=== PATIENT | male | born 1995 | race Caucasian/White ===

== ENCOUNTER 2022-06-28 18:09 | Emergency (ER) | payer SELFPAY ==
[2022-06-28 18:10] VITALS: BP 135/81; PULSE 95; RESP 15; TEMP 36.4; O2SAT 100
--- NOTE | 2022-06-28 18:20 | PC.NURSE ---
EDP at bedside to assess pt.
--- NOTE | 2022-06-28 18:29 | ED.WOUNDLAC ---
HPI - Wound/Laceration General Chief Complaint: Wound/Laceration Stated Complaint: ?spider bite right thigh Time Seen by Provider: 06/28/22 18:19 History of Present Illness HPI narrative: Patient is a 26-year-old male here for evaluation of a wound to his right inner thigh. Patient states the pain came on yesterday. He believes he was bit by a spider because they were cleaning out the attic but did not witness this. He has had no fevers, chills, nausea, vomiting. He is not immunocompromise. Review of Systems Review of Systems: Gen.: Denies fevers or chills Eyes: Denies eye pain or visual change ENT: Denies congestion Respiratory: Denies shortness of breath or cough CV: Denies chest pain or palpitations GI: Denies abdominal pain nausea, emesis or diarrhea denies burning, urgency, frequency or hematuria Musculoskeletal: Denies back pain or muscle pain Neuro: Denies numbness, tingling, weakness or focal weakness Skin: Reports wound to right inner thigh Except as documented, all other systems reviewed and negative Exam Narrative: Gen: Alert, oriented, no acute distress Eyes: No rash to the mucous membranes. Pulm: Respirations even and unlabored, symmetric thorax expansion, no audible stridor or visible cyanosis CV: Regular rate per telemetry GI: No distension, no voluntary/involuntary guarding Neuro: AOx4, moves all extremities without apparent difficulty or weakness, follows commands Skin: There are 4-5 pinpoint petechiae to the right inner thigh with a tiny central bulla that does not slough off. No surrounding erythema. No underlying induration or fluctuance. Psych: Normal mood/affect, insight/judgement good, adequate fund of knowledge, recent/remote memory intact Course Vital Signs Vital signs: Vital Signs Temperature 97.6 F 06/28/22 18:10 Pulse Rate 95 06/28/22 18:10 Respiratory Rate 15 06/28/22 18:10 Blood Pressure 135/81 06/28/22 18:10 Pulse Oximetry 100 06/28/22 18:10 Oxygen Delivery Room Air 06/28/22 18:10 Temperature 97.6 F 06/28/22 18:10 Pulse Rate 95 06/28/22 18:10 Respiratory Rate 15 06/28/22 18:10 Blood Pressure 135/81 05/19/23 18:10 Pulse Oximetry 100 06/28/22 18:10 Oxygen Delivery Room Air 06/28/22 18:10 MDM - Wound/Laceration MDM Narrative Medical decision making narrative: 26 year old male here for evaluation of rash to right inner thigh, believes he was bit by a spider. There is a few pinpoint petechiae to the right inner thigh with a central bulla, no underlying induration or fluctuance. Patient is not having any systemic symptoms to suggest severe disease. Possible brown recluse bite. Patient's tetanus was updated and will be sent home with antibiotics. Discharge Plan Discharge Clinical Impression: Accidental spider bite Patient Disposition: Home, Self-Care Condition: Stable Instructions: Antibiotic Form, Brown Recluse Spider Bite (ED) Additional Instructions: It is unclear what is causing your rash. Please take the antibiotics as directed. Please follow-up with your primary care doctor next week. Return to the ED if the rash gets bigger, you get a fever, have other concerning symptoms. Use cold compresses, ibuprofen and Tylenol as needed for pain. Prescriptions: New doxycycline hyclate 100 mg capsule 100 mg PO BID Qty: 14 0RF Follow-up/Referrals: PHYSICIAN,LABORER VINEYARD [Primary Care Provider] -
--- NOTE | 2022-06-28 18:56 | PC.NURSE ---
Patient report given to MARCELO Holly. All questions answered and care of patient transferred.
[2022-06-28] MEDS: TETANUS,DIPHTHERIA,AC PERTUSSIS ADULT (0.5 ML) BOOSTRIX IM (19:08)
== END 2022-06-28 19:15 | disposition home or self-care (01) ==
LOC: ANHED 18:29
PROVIDERS: Emergency Provider Physician Assistant
DX: T63.301A Toxic effect of unspecified spider venom, accidental (unintentional), initial encounter (principal); Z23 Encounter for immunization
CPT/HCPCS: 90471; 90715; 99283

== ENCOUNTER 2022-07-05 17:40 | Emergency (ER) | payer SELFPAY ==
[2022-07-05 17:47] VITALS: BP 160/103; PULSE 97; RESP 18; TEMP 36.9; O2SAT 100
[2022-07-05 20:03] VITALS: BP 144/109; PULSE 91; RESP 14; TEMP 36.6; O2SAT 100
--- NOTE | 2022-07-05 20:54 | ED.SKABFB ---
HPI - Skin/Abscess/Foreign Bdy General Chief complaint: Skin/Abscess/Foreign Body <BONITA Mary Last Filed: 07/06/22 00:24> Stated complaint: spider bite <BONITA Mary Last Filed: 07/06/22 00:24> Time Seen by Provider: 07/05/22 20:11 <BONITA Mary Last Filed: 07/06/22 00:24> History of Present Illness HPI narrative: Patient is a 26-year-old male here for evaluation of a spider bite to his inner thigh. Was seen here 7 days ago and was given doxycycline and completed the course but states that he pain has not improved in size. Reports a bruise to his inner thigh that is tender to touch. No spontaneous drainage. No systemic symptoms. <BONITA Mary Last Filed: 07/06/22 00:24> Related Data Allergies/Adverse reactions: Allergies Allergy/AdvReac Type Severity Reaction Status Date / Time Penicillins Allergy Rash Verified 06/28/22 19:07 <BONITA Mary Last Filed: 07/06/22 00:24> Review of Systems Review of Systems: Gen.: Denies fevers or chills Eyes: Denies eye pain or visual change ENT: Denies congestion Respiratory: Denies shortness of breath or cough CV: Denies chest pain or palpitations GI: Denies abdominal pain nausea, emesis or diarrhea : denies burning, urgency, frequency or hematuria Musculoskeletal: Denies back pain or muscle pain Neuro: Denies numbness, tingling, weakness or focal weakness Skin: Reports rash Except as documented, all other systems reviewed and negative <BONITA Mary Last Filed: 07/06/22 00:24> Exam Narrative: APPEARANCE: No acute distress, nontoxic, resting in bed EYES: EOMI HEENT: Normocephalic, atraumatic, OMM RESPIRATORY: No respiratory distress Clear to auscultation bilaterally with no rhonchi wheezing or rales. CARDIOVASCULAR: Regular rate and rhythm without murmurs rubs or gallops. ABDOMINAL: Soft, nontender, nondistended, no rebound or guarding MUSCULOSKELETAl: Moves all extremities. No clubbing, cyanosis or edema. NEURO: Awake and alert. Following commands, speech normal, no focal deficits SKIN:: There is a 2 x 3 cm area of bruising to the right inner thigh with a central bulla containing clear fluid. [id number] ultrasound reveals no pocket of fluctuance PSYCHIATRIC: Normal affect/mood, <Ping Ba PA-C - Last Filed: 07/06/22 00:24> Course PATIENT ACCOUNTS COORDINATOR/PA Physician Supervision For this patient encounter, I reviewed the PATIENT ACCOUNTS COORDINATOR or PA documentation, treatment plan, and I was responsible for the medical decision making; and I had [id number] time with this patient. <Nahum Jessica MD - Last Filed: 07/05/22 22:08> Vital Signs Vital signs: Vital Signs Temperature 98.4 F 07/05/22 17:47 Pulse Rate 97 07/05/22 17:47 Respiratory Rate 18 07/05/22 17:47 Blood Pressure 160/103 H 07/05/22 17:47 Pulse Oximetry 100 07/05/22 17:47 Oxygen Delivery Room Air 07/05/22 17:47 Temperature 97.7 F 07/05/22 21:10 Pulse Rate 83 07/05/22 21:10 Respiratory Rate 15 07/05/22 21:10 Blood Pressure 156/105 H 07/05/22 21:10 Pulse Oximetry 100 07/05/22 21:10 Oxygen Delivery Room Air 07/05/22 17:47 <Ping Ba PA-C - Last Filed: 07/06/22 00:24> Vital Signs Temperature 98.4 F 07/05/22 17:47 Pulse Rate 97 07/05/22 17:47 Respiratory Rate 18 07/05/22 17:47 Blood Pressure 160/103 H 07/05/22 17:47 Pulse Oximetry 100 07/05/22 17:47 Oxygen Delivery Room Air 07/05/22 17:47 Temperature 97.7 F 07/05/22 21:10 Pulse Rate 83 07/05/22 21:10 Respiratory Rate 15 07/05/22 21:10 Blood Pressure 156/105 H 07/05/22 21:10 Pulse Oximetry 100 07/05/22 21:10 Oxygen Delivery Room Air 07/05/22 17:47 <Nahum Jessica MD - Last Filed: 07/05/22 22:08> MDM - Skin/Abscess/Foreign Bdy MDM Narrative Medical decision making narrative: 26-year-old male here for evaluation of likel
[2022-07-05 21:10] VITALS: BP 156/105; PULSE 83; RESP 15; TEMP 36.5; O2SAT 100
== END 2022-07-05 21:11 | disposition home or self-care (01) ==
PROVIDERS: Emergency Provider Physician Assistant
DX: T63.301A Toxic effect of unspecified spider venom, accidental (unintentional), initial encounter (principal)
CPT/HCPCS: 99283